=== PATIENT | female | born 1960 | race Caucasian/White ===

== ENCOUNTER 2022-04-25 19:46 | Emergency (ER) | payer MEDICARE, SELFPAY ==
[2022-04-25 19:47] VITALS: BP 129/72; PULSE 68; RESP 16; TEMP 36.6; O2SAT 95; BMI 25.7
--- NOTE | 2022-04-25 20:17 | CTR_ITS ---
PROCEDURE INFORMATION: Exam: CT Head Without Contrast Exam date and time: 04/25/2022 8:46 PM Age: 61 years old Clinical indication: Other: Seizure TECHNIQUE: Imaging protocol: Computed tomography of the head without contrast. Radiation optimization: All CT scans at this facility use at least one of these dose optimization techniques: automated exposure control; mA and/or kV adjustment per patient size (includes targeted exams where dose is matched to clinical indication); or iterative reconstruction. Other protocol: This patient has received 0 known CTs and 0 known cardiac nuclear medicine studies in the 12 months prior to the current study. COMPARISON: No relevant prior studies available. RADIATION DOSE METRICS: Total DLP (mGy-cm): 1209.25 FINDINGS: Brain: Normal. No hemorrhage. Unremarkable white matter. No mass effect. Cerebral ventricles: No ventriculomegaly. Paranasal sinuses: Visualized sinuses are unremarkable. No fluid levels. Mastoid air cells: Visualized mastoid air cells are well aerated. Orbital cavities: Calcifications in the right globe with high density material likely related to previous treatment of retinal detachment. Bones/joints: Unremarkable. No acute fracture. Soft tissues: Unremarkable. CT/CT head wo con* [id number] IMPRESSION: No acute intracranial abnormality.
[2022-04-25] MEDS: sodium chloride 0.9% 1,000 ML 999 ML IV (20:32)
[2022-04-25] MEDS: haloperidol inj 5 mg/mL INJ 1 mL 3 MG IVP (20:33)
[2022-04-25 20:46] LABS: Basophils % 0.3 %; Eosinophils # 0.1 10^3/uL (0.0-0.8); Eosinophils % 1.2 %; Hematocrit 44.7 % (37.0-47.0); Hemoglobin 15.1 g/dL (11.5-15.3); Lymphocytes # 1.8 10^3/uL (0.8-4.8); Lymphocytes % 26.5 %; Mean Corpuscular HGB Conc 33.8 g/dL (30.0-36.0); Mean Corpuscular Hemoglobin 31.7 pg (28.0-34.0); Mean Corpuscular Volume 93.7 fl (81-99); Mean Platelet Volume 10.9 fL (7.4-10.4); Monocytes # 0.5 10^3/uL (0.2-0.9); Monocytes % 6.9 %; Neutrophils # 4.39 10^3/uL (1.8-7.7); Neutrophils % 64.8 %; Nucleated Red Blood Cells % 0 %; Platelet Count 206 10^3/cmm (130-400); Red Blood Count 4.77 10^6/uL (4.1-5.3); Red Cell Distribution Width 11.9 % (12.1-15.1); White Blood Count 6.8 10^3/uL (4.0-10.0)
[2022-04-25 20:56] LABS: Alanine Aminotransferase 16 U/L (0-33); Albumin Level 3.9 g/dL (3.5-5.2); Alkaline Phosphatase 97 U/L (35-105); Anion Gap 16.9 (5-19); Aspartate Amino Transferase 22 U/L (0-32); Blood Urea Nitrogen 13 mg/dL (8-23); Calcium 9.4 mg/dL (8.5-10.5); Carbon Dioxide 24 mmol/L (22-29); Chloride 103 mmol/L (98-107); Globulin 3.1 g/dL (1.3-4.6); Glomerular Filtration Rate 125.4 mL/min (90-130); Glucose 173 mg/dL (65-115); Magnesium 1.8 mg/dL (1.7-2.3); Osmolality Calculated 294 mOsm/kg (285-295); Phosphorus 3.4 mg/dL (2.5-4.5); Potassium 3.9 mmol/L (3.5-5.1); Sodium 140 mmol/L (136-145); Total Bilirubin 0.5 mg/dL (0.15-1.2)
[2022-04-25 21:00] LABS: Alcohol Level < 10 mg/dL (0-10)
--- NOTE | 2022-04-25 21:24 | ED_ITS ---
HPI - Seizure General: Chief Complaint: Seizure Stated Complaint: SEIZURES Time Seen by Provider: 04/25/22 19:50 Source: patient History of Present Illness: HPI Narrative: 61-year-old female who was recently admitted to an outside facility for seizure- like episodes, discharged yesterday after multiple tests were ran, presenting with ongoing seizure-like episodes. She has had more than 1 today. On my interview, she begins to have 1 of these episodes. She stated that she felt it coming on. During the episode, her eyes closed, she had several tics or jerks and movement that were not rhythmic. She experienced rotating motions in both wrists, and semirhythmic movement of her feet. She was able to talk through this episode. She says these episodes are new for her. No cause was found on her prior hospitalization. She was sent home on Keppra. She does not believe it is helping with the frequency or intensity of these episodes. She does not bite her tongue or lose continence of bowel or bladder function. MD complaint: possible seizure Onset (ago): day(s) Description of Episode: other Trauma: No Seizure History: No Place: Home Possible Precipitating Event: none Associated symptoms: Reports confusion; Deny chest pain, cough, fever(s), short of breath or weakness Treatments prior to arrival: none Review of Systems Const: Denies: fever(s) ENMT: Denies: throat pain Card: Denies: chest pain Resp: Denies: dyspnea GI: Denies: abdominal pain Neuro: Reports: confusion Physical Exam Const: COMMON NORMALS: no acute distress and patient oriented x3 GENERAL APPEARANCE: cooperative; not ill appearing and not frail appearing HENMT: COMMON NORMALS: normocephalic, atraumatic and Normal external nose present HEAD & SCALP: normocephalic and atraumatic FACE & SINUS: normal facial exam and face symmetric NOSE: Normal external nose present Eye: COMMON NORMALS: Equal, round and reactive pupils present and EOMs intact bilaterally PUPIL: Yes Equal, round and reactive pupils present Neck/C-Spine: GENERAL: Yes trachea midline Chest: CHEST: Yes Symmetrical chest wall rise Resp: COMMON NORMALS: normal respiratory effort, No retractions, No use of accessory muscles and clear to auscultation bilaterally AUSCULTATION: clear to auscultation bilaterally Cardio: COMMON NORMALS: regular rate and regular rhythm RATE: regular rate RHYTHM: regular rhythm GI: COMMON NORMALS: Normal to inspection, nondistended, normoactive bowel sounds present Extremity: COMMON NORMALS: no pedal edema Neuro: JIMMIE COMA SCALE: document GCS findings Jimmie coma scale eye opening: Spontaneous [place] coma scale verbal response: Orientated Jimmie coma scale motor response: Obey commands Jimmie coma scale total score: 15 COMMON NORMALS: patient oriented x3 CRANIAL NERVES: Yes CN normal except as noted SPEECH: speech normal SENSORY EXAM: Yes extremities (intact) MOTOR EXAM: 5/5 motor strength present throughout, Pronator motor function not present and Normal motor muscle tone present throughout Psych: COMMON NORMALS: cooperative, speech normal and activity/motor behavior normal (Strange motor behaviors) SPEECH: Yes normal speech Skin: COMMON NORMALS: no rashes or lesions noted GENERAL SKIN EXAM: no rashes or lesions noted Course Vital Signs: Vital signs: Vital Signs Temperature 97.9 F 04/25/22 19:47 Pulse Rate 68 04/25/22 19:47 Respiratory Rate 16 04/25/22 19:47 Blood Pressure 129/72 04/25/22 19:47 Pulse Oximetry 95 04/25/22 19:47 Oxygen Delivery Me thod 04/25/22 19:47 MDM - Seizure MDM Narrative Medical decision making narrative: I have witnessed 1 of these episodes on my interview in the room. These are in no way generalized seizures. There was no arrhythmia on the monitor. She was able to talk through the episode. Her laboratory is not remarkable. Her head CT is negative. Her EKG is normal. We are attempting to obtain records from the outside facility she was seen at, as the patient states she had an EEG there, etc. We have not yet been able to obtain records from the outside facility. The patient was given IV Haldol after her first episode of seizure she has not had any more episodes. She has been resting comfortably. These are likely pseudoseizures given her presentation. She is encouraged to follow-up with neurology as an outpatient. Lab Data 04/25/22 20:33 04/25/22 20:33 Labs: Radiology Impressions Head CT 04/25/22 20:17 IMPRESSION: No acute intracranial abnormality. Laboratory Results WBC 6.8 10^3/uL (4.0-10.0) 04/25/22 20:33 RBC 4.77 10^6/uL (4.1-5.3) 04/25/22 20: Hgb 15.1 g/dL (11.5-15.3) 04/25/22 20: Hct 44.7 % (37.0-47.0) 04/25/22 20: MCV 93.7 fl (81-99) 04/25/22 20: MCH 31.7 pg (28.0-34.0) 04/25/22: MCHC 33.8 g/dL (30.0-36.0) 04/25/22 20: RDW 11.9 % (12.1-15.1) L 04/25/22 20: Plt Count 206 10^3/cmm (130-400) 04/25/22 20: MPV 10.9 fL (7.4-10.4) H 04/25/22 20: Neut % (Auto) 64.8 % 04/25/22: Lymph % (Auto) 26.5 % 04/25/22: [place] % (Auto) 6.9 % 04/25/22: Eos % (Auto) 1.2 % 04/25/22: Baso % (Auto) 0.3 % 04/25/22: Neut # (Auto) 4.39 10^3/uL (1.8-7.7) 04/25/22: Lymph # (Auto) 1.8 10^3/uL (0.8-4.8) 04/25/22: [place] # (Auto) 0.5 10^3/uL (0.2-0.9) 04/25/22 20: Eos # (Auto) 0.1 10^3/uL (0.0-0.8) 04/25/22: Baso # (Auto) 0.0 10^3/uL (0.0-0.1) 04/25/22: Nucleated RBC % (auto) 0 % 04/25/22: Nucleated RBCs # 0.0 /100WBC 04/25/22 20: Sodium 140 mmol/L (136-145) 04/25/22 20: Potassium 3.9 mmol/L (3.5-5.1) 04/25/22 20:33 Chloride 103 mmol/L (98-107) 04/25/22 20:33 Carbon Dioxide 24 mmol/L (22-29) 04/25/22 20:33 Anion Gap 16.9 (5-19) 04/25/22 20:33 BUN 13 mg/dL (8-23) 04/25/22 20:33 Creatinine 0.5 mg/dL (0.5-0.9) 04/25/22 20:33 GFR Calculation 125.4 mL/min (90-130) 04/25/22 20:33 Glucose 173 mg/dL (65-115) H 04/25/22 20:33 Calculated Osmolality 294 mOsm/kg (285-295) 04/25/22 20:33 Calcium 9.4 mg/dL (8.5-10.5) 04/25/22 20:33 Phosphorus 3.4 mg/dL (2.5-4.5) 04/25/22 20:33 Magnesium 1.8 mg/dL (1.7-2.3) 04/25/22 20:33 Total Bilirubin 0.5 mg/dL (0.15-1.2) 04/25/22 20:33 AST 22 U/L (0-32) 04/25/22 20:33 ALT 16 U/L (0-33) 04/25/22 20:33 Alkaline Phosphatase 97 U/L (35-105) 04/25/22 20:33 Total Protein 7.0 g/dL (6.6-8.7) 04/25/22 20:33 Albumin 3.9 g/dL (3.5-5.2) 04/25/22 20:33 Globulin 3.1 g/dL (1.3-4.6) 04/25/22 20:33 Ethyl Alcohol < 10 mg/dL (0-10) 04/25/22 20:33 Discharge Plan Discharge Patient Disposition: Home Clinical Impression: Pseudoseizure Condition: Stable Discharge Orders: Discharge ED (Routine); Ordered 04/25/22 Ordered By: Vikram Meade Patient Instructions: Recurrent Seizures in Adults (ED) Activity Restrictions/Additional Instructions: Continue your medications as prescribed by neurology. Follow-up with him as directed. Do not drive a car or operate machinery until cleared by neurology. You should attempt to remain as stress-free as possible for the next few days, and get plenty of sleep. Return for fever greater than 100, worsening mental status, weakness, language problems, worsening episodes of seizure, other concerning symptoms Coding Level of Care Code ED Systems Integration Manager for Monique Bustillos Exam Comprehensive
--- NOTE | 2022-04-28 11:18 | DCPLANNER ---
Addendum entered by Leonie Jo 06/18/22 09:01: appointment cancelled Addendum entered by Leonie Jo 05/08/22 16:28: Patient has a follow up appointment scheduled for Friday, June 17, 2022 at 12:[address] Vieira at neurology. Clinic will call patient with appointment information. Original Note: marketing effectiveness manager had message to schedule a follow up appointment for patient with neurology. marketing effectiveness manager sent patients information to the front office staff at neurology. Patients information will be printed and reviewed. Clinic will call patient with appointment information.
--- NOTE | 2022-04-28 11:21 | DCPLANNER ---
field nurse case manager had message to speak with patient about getting established with a primary care physician. field nurse case manager spoke with patient, she stated that she wanted to wait and speak with a friend before getting established with a physician. Patient stated that if she wanted help in getting established with someone, she will call manager case management to help.
== END 2022-04-26 02:02 | disposition home or self-care (01) ==
PROVIDERS: Emergency Provider Emergency Medicine
DX: G40.89 Other seizures (principal)
CPT/HCPCS: 36415; 70450; 80053; 80307; 83735; 84100; 85025; 96361; 96374; 99285; J1630; J7030

== ENCOUNTER → 2022-05-15 10:53 | Outpatient (BNVA) | payer MEDICARE, SELFPAY | PROVIDERS: PCP Nurse Practitioner Family; Visit Provider Nurse Practitioner Family | DX: E11.9 Type 2 diabetes mellitus without complications (principal); E78.5 Hyperlipidemia, unspecified | CPT/HCPCS: 80053; 80061; 83036 ==

== ENCOUNTER 2022-08-20 22:43 | Emergency (ER) | payer MEDICARE, MEDICAID, SELFPAY ==
[2022-08-20 22:44] VITALS: BP 148/84; PULSE 81; RESP 18; TEMP 36.7; O2SAT 95; BMI 29.7
[2022-08-20 22:50] VITALS: BP 112/55; O2SAT 94
--- NOTE | 2022-08-20 22:51 | XRR_ITS ---
PROCEDURE INFORMATION: Exam: XR Chest Exam date and time: 08/20/2022 11:03 PM Age: 61 years old Clinical indication: Other: Syncopal episode TECHNIQUE: Imaging protocol: Radiologic exam of the chest. Views: 1 view. COMPARISON: No relevant prior studies available. FINDINGS: Lungs: Unremarkable. No consolidation. Pleural spaces: Unremarkable. No pleural effusion. No pneumothorax. Heart/Mediastinum: Unremarkable. No cardiomegaly. Bones/joints: Unremarkable. XR/XR chest 1V portable [id number] IMPRESSION: No acute findings.
[2022-08-20 22:56] LABS: Basophils # 0.1 10^3/uL (0.0-0.1); Basophils % 0.7 %; Eosinophils # 0.1 10^3/uL (0.0-0.8); Eosinophils % 1.5 %; Hematocrit 42.1 % (37.0-47.0); Hemoglobin 14.3 g/dL (11.5-15.3); Lymphocytes # 2.3 10^3/uL (0.8-4.8); Lymphocytes % 31.8 %; Mean Corpuscular Hemoglobin 32.6 pg (28.0-34.0); Mean Corpuscular Volume 96.1 fl (81-99); Mean Platelet Volume 9.8 fL (7.4-10.4); Monocytes # 0.4 10^3/uL (0.2-0.9); Neutrophils # 4.27 10^3/uL (1.8-7.7); Neutrophils % 59.3 %; Nucleated Red Blood Cells % 0 %; Platelet Count 216 10^3/cmm (130-400); Red Blood Count 4.38 10^6/uL (4.1-5.3); Red Cell Distribution Width 13.4 % (12.1-15.1); White Blood Count 7.2 10^3/uL (4.0-10.0)
--- NOTE | 2022-08-20 22:59 | CTR_ITS ---
PROCEDURE INFORMATION: Exam: CT Maxillofacial Without Contrast Exam date and time: 08/20/2022 11:17 PM Age: 61 years old Clinical indication: Injury or trauma; Blunt trauma (contusions or hematomas); Orbit/periorbital; Prior surgery; Surgery date: 6+ months; Surgery type: Multiple eye surgeries; Patient HX: Syncopal episode with fall at home. Patient struck head on floor. Bruising and swelling to left orbit. Breast cancer. ; Additional info: Fall and hit head on ground. Lft periorbital pain and edema TECHNIQUE: Imaging protocol: Computed tomography of the face without contrast. Radiation optimization: All CT scans at this facility use at least one of these dose optimization techniques: automated exposure control; mA and/or kV adjustment per patient size (includes targeted exams where dose is matched to clinical indication); or iterative reconstruction. REPORTING DATA: Count of CT and Cardiac NM exams in prior 12 months: This patient has received [address] and 0 known cardiac nuclear medicine studies in the 12 months prior to the current study. COMPARISON: CT head wo con* [id number] 08/20/2022 11:14 PM RADIATION DOSE METRICS: Total DLP (mGy-cm): 594.34 FINDINGS: Orbital cavities: Unchanged right globe density with postop appearance. The left globe is irregular in shape and contains high density which may be due to globe rupture or physis bulbi. This requires correlation. No retrobulbar hematoma. Mild left-sided proptosis. Bones/joints: No fracture noted. Paranasal sinuses: No significant sinus disease is apparent. Soft tissues: Moderate left orbital and facial soft tissue swelling. CT/CT facial bones wo con* [id number] IMPRESSION: 1. Left orbital injuries as described with concern for left globe rupture versus developing physis bulbi. This is new from 04/25/2022. Therefore, globe injury must be considered most likely. Follow-up with ophthalmology. 2. No facial fracture noted.
--- NOTE | 2022-08-20 22:59 | XRR_ITS ---
PROCEDURE INFORMATION: Exam: XR Lumbosacral Spine Exam date and time: 08/20/2022 11:06 PM Age: 61 years old Clinical indication: Low back pain; Additional info: Low back pain after fall TECHNIQUE: Imaging protocol: Radiologic exam of the lumbosacral spine. Views: 2 or 3 views. COMPARISON: No relevant prior studies available. FINDINGS: Bones/joints: Multilevel moderate to severe disc space narrowing and productive degenerative endplate changes throughout the spine most significant at L2-L3. Soft tissues: Unremarkable. Vasculature: Scattered vascular calcifications. XR/XR lumbar spine 2-3V* [id number] IMPRESSION: 1. Multilevel moderate to severe disc space narrowing and productive degenerative endplate changes throughout the spine most significant at L2-L3. 2. Scattered vascular calcifications.
--- NOTE | 2022-08-20 22:59 | CTR_ITS ---
PROCEDURE INFORMATION: Exam: CT Cervical Spine Without Contrast Exam date and time: 08/20/2022 11:20 PM Age: 61 years old Clinical indication: Injury or trauma; Blunt trauma; Prior surgery; Surgery date: 6+ months; Surgery type: Cervical fusion; Patient HX: Syncopal episode with fall at home. Patient struck head on floor. Bruising and swelling to left orbit. Breast cancer. ; Additional info: Unprotected fall with +loc, neck pain TECHNIQUE: Imaging protocol: Computed tomography of the cervical spine without contrast. Radiation optimization: All CT scans at this facility use at least one of these dose optimization techniques: automated exposure control; mA and/or kV adjustment per patient size (includes targeted exams where dose is matched to clinical indication); or iterative reconstruction. REPORTING DATA: Count of CT and Cardiac NM exams in prior 12 months: This patient has received [address] and 0 known cardiac nuclear medicine studies in the 12 months prior to the current study. COMPARISON: CT facial bones wo con* [id number] 08/20/2022 11:17 PM RADIATION DOSE METRICS: Total DLP (mGy-cm): 144.17 FINDINGS: Bones/joints: No acute fracture. [id number] mid to lower cervical degenerative change. A C5-C6 fusion is intact. No jumped, locked or perched facets. No severe spinal canal stenosis. No significant neural foraminal narrowing. Lungs: Lung apices are normal. Vasculature: Advanced diffuse vascular calcification noted. Soft tissues: Unremarkable. CT/CT cervical spin wo con* [id number] IMPRESSION: No acute findings.
--- NOTE | 2022-08-20 22:59 | CTR_ITS ---
PROCEDURE INFORMATION: Exam: CT Head Without Contrast Exam date and time: 08/20/2022 11:14 PM Age: 61 years old Clinical indication: Injury or trauma; Blunt trauma (contusions or hematomas); Prior surgery; Surgery date: 6+ months; Surgery type: Multiple eye surgeries. Patient HX: Syncopal episode with fall at home. Patient struck head on floor. Bruising and swelling to left orbit. Breast cancer. ; Additional info: Fall and hit head with positive loss of consciousness TECHNIQUE: Imaging protocol: Computed tomography of the head without contrast. Radiation optimization: All CT scans at this facility use at least one of these dose optimization techniques: automated exposure control; mA and/or kV adjustment per patient size (includes targeted exams where dose is matched to clinical indication); or iterative reconstruction. REPORTING DATA: Count of CT and Cardiac NM exams in prior 12 months: This patient has received [address] and 0 known cardiac nuclear medicine studies in the 12 months prior to the current study. COMPARISON: CT head wo con* [id number] 04/25/2022 8:46 PM RADIATION DOSE METRICS: Total DLP (mGy-cm): 1106.38 FINDINGS: Brain: No focal hemorrhage or midline shift is identified. The ventricles and parenchyma show mild atrophy and chronic bicerebral white matter ischemic change. Cerebral ventricles: No ventriculomegaly or evidence of hydrocephalus. Paranasal sinuses: No evidence of acute sinusitis. Mastoid air cells: Visualized mastoid air cells are well aerated. Bones/joints: No displaced skull fracture is noted. Soft tissues: Unremarkable. Vasculature: Diffuse vascular calcifications are present. CT/CT head wo con* [id number] IMPRESSION: 1. No acute intracranial abnormality. 2. Mild age-related changes. 3. Face CT pending; orbit and globe findings will be detailed on that examination.
--- NOTE | 2022-08-20 22:59 | ECG_ITS ---
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 Measurements Intervals [place] Rate: 80 P: -82 WI: 119 QRS: 42 QRSD: 86 T: 49 QT: 355 QTc: 411 Interpretive Statements SINUS RHYTHM ABNORMAL RHYTHM ECG No previous ECG available for comparison Electronically Signed On 08-21-2022 20:44:55 CDT by Deirdre Ledezma M.D. [email or web address]
--- NOTE | 2022-08-20 23:02 | ED_ITS ---
Documented by User: GISELE Miller 08/21/22 01:28 HPI - Fall General: Chief Complaint: Fall Stated Complaint: FALL Time Seen by Provider: 08/20/22 22:45 History of Present Illness: Patient is a 61-year-old female who comes to the ED via EMS after fall. Patient has a past medical history of type 2 diabetes, fibromyalgia, breast cancer and IBS. Fall occurred just prior to arrival. Patient says she was having a hard time sleeping over the past couple days so tonight she took 1 tablet of 2 mg lorazepam and did not feel like it was working so she took another tablet of her 2 mg lorazepam and also drank a glass of vodka. Patient says she got up to go to the bathroom and woke up on the floor. She has no idea how she fell or what caused her fall. She was able to scoot her way out to her front door to call out for help. She states that when she woke up on the floor she was confused and disoriented. She thinks she was only out for several minutes but is unsure of the exact amount of time that passed. After fall her main complaints are headache, left maxillary and left periorbital pain and swelling, neck pain and low back pain. Patient also describes her left eye hurting when she moves it. She rates her pain currently a 6 out of 10. Denies any other symptoms preceding her syncopal episode and fall. Denies any chest pain, shortness of breath, palpitations, fevers, vomiting, bladder or bowel symptoms. Associated symptoms-after fall: Reports headache(s) and neck pain; Denies abdominal pain, chest pain or hematuria Review of Systems Const: Denies: fever(s), chills or fatigue Eyes: Reports: eye discomfort (Left eye pain with occular movements) and other (Left periorbital ecchymosis and swelling); Denies: change in vision ENMT: Reports: sinus pain (Left maxillary facial pain); Denies: throat pain, odynophagia, nasal discharge or nasal congestion Card: Reports: syncope; Denies: chest pain, palpitations, edema, swelling of feet/ankles, dyspnea on exertion or orthopnea Resp: Denies: dyspnea, productive cough or non-productive cough GI: Denies: abdominal pain, nausea, vomiting, diarrhea, constipation or hematochezia : Denies: flank pain, dysuria or hematuria Musc: Reports: neck pain and back pain; Denies: extremity swelling Skin/Breast: Denies: rash or new lesions Neuro: Reports: headache(s); Denies: numbness in extremities or weakness in extremities PFSH ED PFSH: Medical History Diabetes type 2, uncontrolled History of fibromyalgia Hx of breast cancer Hx of irritable bowel syndrome Surgical History History of ankle surgery Plates and screws in R. ankle History of tonsillectomy and adenoidectomy Hx of arthroscopic knee surgery R. Hx of cholecystectomy Hx of eye surgery Hx of mastectomy bilateral Family History Family/Other CAD (coronary artery disease) biological father's side Cancer biological mother's side Other Unobtainable family history due to adoption Social History Smoking and tobacco status: former smoker Quit status (tobacco): has quit using tobacco Year quit tobacco: 2021 Alcohol intake: never Substance/Drug Use: never Adopted: Yes Lives independently: Yes Household members: none Housing: Apartment Physical Exam Const: COMMON NORMALS: patient oriented x3 HENMT: COMMON NORMALS: normocephalic HEAD & SCALP: normocephalic MOUTH: Normal oral and palatal mucosa present THROAT: posterior oropharynx normal a nd uvula midline Eye: COMMON NORMALS: Equal, round and reactive pupils present (Normal on right eye) and EOMs intact bilaterally (Patient endorses pain in left eye with ocular movements) CONJUNCTIVA: Yes conjunctival abnormal positive left subconjunctival hemorrhage PUPIL: Yes Equal, round and reactive pupils present (Normal on right eye) OTHER: Patient also has active bleeding from left eye and globe appears ruptured. Neck/C-Spine: COMMON NORMALS: supple GENERAL: Yes normal visual inspection Resp: COMMON NORMALS: normal respiratory effort, No retractions, No use of accessory muscles and clear to auscultation bilaterally AUSCULTATION: clear to auscultation bilaterally Cardio: COMMON NORMALS: regular rate, regular rhythm, S1 normal heart sound present, S2 normal heart sound present, No gallops present (Cardio), No clicks present (Cardio), No murmurs present (Cardio) and Peripheral pulses 2+ throughout RATE: regular rate RHYTHM: regular rhythm HEART SOUNDS: S1 normal heart sound present and S2 normal heart sound present PERIPHERAL PULSES: Peripheral pulses 2+ throughout GI: COMMON NORMALS: Normal to inspection, nondistended, normoactive bowel lefty nds present, Soft to palpation, non-tender and no masses PALPATION: Yes Soft to palpation : COMMON NORMALS: Yes no CVA tenderness BLADDER/KIDNEY EXAM: Yes no CVA tenderness Back/Pelvis: COMMON NORMALS: no CVA tenderness Extremity: COMMON NORMALS: normal to inspection Neuro: COMMON NORMALS: patient oriented x3 GAIT: Yes Normal gait present Skin: GENERAL SKIN EXAM: dry skin Course Vital Signs: Vital signs: Vital Signs Temperature 98.0 F 08/20/22 22:44 Pulse Rate 82 08/21/22 01:19 Respiratory Rate 18 08/21/22 01:19 Blood Pressure 133/84 08/21/22 01:19 Pulse Oximetry 92 08/21/22 01:19 Oxygen Delivery Me thod Room Air 08/21/22 00:20 MDM - Fall Lab Data I reviewed the patient's lab results. 08/20/22 22:30 08/20/22 23:35 Radiology Impressions Chest X-Ray 08/20/22 22:51 IMPRESSION: No acute findings. Cervical Spine CT 08/20/22 22:59 IMPRESSION: No acute findings. Face CT 08/20/22 22:59 IMPRESSION: 1. Left orbital injuries as described with concern for left globe rupture versus developing physis bulbi. This is new from 04/25/2022. Therefore, globe injury must be considered most likely. Follow-up with ophthalmology. 2. No facial fracture noted. Head CT 08/20/22 22:59 IMPRESSION: 1. No acute intracranial abnormality. 2. Mild age-related changes. 3. Face CT pending; orbit and globe findings will be detailed on that examination. Lumbar Spine X-Ray 08/20/22 22:59 IMPRESSION: 1. Multilevel moderate to severe disc space narrowing and productive degenerative endplate changes throughout the spine most significant at L2-L3. 2. Scattered vascular calcifications. Laboratory Results WBC 7.2 10^3/uL (4.0-10.0) 08/20/22 22:30 RBC 4.38 10^6/uL (4.1-5.3) 08/20/22 22:30 Hgb 14.3 g/dL (11.5-15.3) 08/20/22: Hct 42.1 % (37.0-47.0) 08/20/22 22: MCV 96.1 fl (81-99) 08/20/22 22: MCH 32.6 pg (28.0-34.0) 08/20/22: MCHC 34.0 g/dL (30.0-36.0) 08/20/22: RDW 13.4 % (12.1-15.1) 08/20/22: Plt Count 216 10^3/cmm (130-400) 08/20/22: MPV 9.8 fL (7.4-10.4) 08/20/22: Neut % (Auto) 59.3 % 08/20/22: Lymph % (Auto) 31.8 % 08/20/22: Whiteside % (Auto) 6.0 % 08/20/22: Eos % (Auto) 1.5 % 08/20/22: Baso % (Auto) 0.7 % 08/20/22: Neut # (Auto) 4.27 10^3/uL (1.8-7.7) 08/20/22: Lymph # (Auto) 2.3 10^3/uL (0.8-4.8) 08/20/22: Whiteside # (Auto) 0.4 10^3/uL (0.2-0.9) 08/20/22: Eos # (Auto) 0.1 10^3/uL (0.0-0.8) 08/20/22: Baso # (Auto) 0.1 10^3/uL (0.0-0.1) 08/20/22: Nucleated RBC % (auto) 0 % 08/20/22: Nucleated RBCs # 0.0 /100WBC 08/20/22: Sodium 140 mmol/L (136-145) 08/20/22: Potassium 3.8 mmol/L (3.5-5.1) 08/20/22 23:35 Chloride 104 mmol/L (98-107) 08/20/22 23:35 Carbon Dioxide 25 mmol/L (22-29) 08/20/22 23:35 Anion Gap 14.8 (5-19) 08/20/22 23:35 BUN 21 mg/dL (8-23) 08/20/22 23:35 Creatinine 0.6 mg/dL (0.5-0.9) 08/20/22 23:35 GFR Calculation 101.6 mL/min (90-130) 08/20/22 23:35 Glucose 97 mg/dL (65-115) 08/20/22 23:35 Calculated Osmolality 293 mOsm/kg (285-295) 08/20/22 23:35 Calcium 8.8 mg/dL (8.5-10.5) 08/20/22 23:35 Total Bilirubin 0.3 mg/dL (0.15-1.2) 08/20/22 23:35 AST 22 U/L (0-32) 08/20/22 23:35 ALT 14 U/L (0-33) 08/20/22 23:35 Alkaline Phosphatase 98 U/L (35-105) 08/20/22 23:35 Troponin T Baseline 7 ng/L (0-10) 08/20/22 22:30 Total Protein 6.7 g/dL (6.6-8.7) 08/20/22 23:35 Albumin 4.0 g/dL (3.5-5.2) 08/20/22 23:35 Globulin 2.7 g/dL (1.3-4.6) 08/20/22 23:35 Urine Color Straw (Yellow) 08/20/22 23:54 Urine Appearance Clear (CLEAR) 08/20/22 23:54 Urine pH 5 (5-7) 08/20/22 23:54 Ur Specific Prentiss 1.015 (1.005-1.030) 08/20/22 23:54 Urine Protein Neg (Negative) 08/20/22 23:54 Urine Glucose (UA) Norm (Normal) 08/20/22 23:54 Urine Ketones Negative (Negative) 08/20/22 23:54 Urine Blood Neg (Negative) 08/20/22 23:54 Urine Nitrate Negative (Negative) 08/20/22 23:54 Urine Bilirubin Neg (Negative) 08/20/22 23:54 Urine Urobilinogen Norm mg/dL (Negative) 08/20/22 23:54 Ur Leukocyte Esterase Negative (Negative) 08/20/22 23:54 Urine Opiates Screen Positive ng/mL (Negative) H 08/20/22 23:54 Ur Barbiturates Screen Negative ng/mL (Negative) 08/20/22 23:54 Ur Phencyclidine Scrn Negative ng/mL (Negative) 08/20/22 23:54 Ur Amphetamines Screen Negative ng/mL (Negative) 08/20/22 23:54 U Benzodiazepines Scrn Positive ng/mL (Negative) H 08/20/22 23:54 Urine Cocaine Screen Negative ng/mL (Negative) 08/20/22 23:54 U Marijuana (THC) Screen Negative ng/mL (Negative) 08/20/22 23:54 Ethyl Alcohol 175 mg/dL (0-10) H 08/20/22 23:35 Discharge Plan Discharge Patient Disposition: Xfer Short-Term Hosp Clinical Impression: Fall, Rupture of globe of left eye following blunt trauma Condition: Stable Referrals: Nieves Bob FNP [Primary Care Provider] - Coding Level of Care Code ED Unemployment Inspector for Chg Fwd Documented by User: Nya Palencia MD 08/21/22 00:51 HPI - Fall General: Chief Complaint: Fall Stated Complaint: FALL Time Seen by Provider: 08/20/22 22:45 PFSH ED PFSH: Medical History Diabetes type 2, uncontrolled History of fibromyalgia Hx of breast cancer Hx of irritable bowel syndrome Surgical History History of ankle surgery Plates and screws in R. ankle History of tonsillectomy and adenoidectomy Hx of arthroscopic knee surgery R. Hx of cholecystectomy Hx of eye surgery Hx of mastectomy bilateral Family History Family/Other CAD (coronary artery disease) biological father's side Cancer biological mother's side Other Unobtainable family history due to adoption Social History Smoking and tobacco status: former smoker Quit status (tobacco): has quit using tobacco Year quit tobacco: 2021 Alcohol intake: never Substance/Drug Use: never Adopted: Yes Lives independently: Yes Household members: none Housing: Apartment Course Vital Signs: Vital signs: Vital Signs Temperature 98.0 F 08/20/22 22:44 Pulse Rate 82 08/21/22 01:19 Respiratory Rate 18 08/21/22 01:19 Blood Pressure 133/84 08/21/22 01:19 Pulse Oximetry 92 08/21/22 01:19 Oxygen Delivery Me thod Room Air 08/21/22 00:20 MDM - Fall Medical Decision Making Patient presents with a globe rupture from a fall with her left eye I did go and examine her she has very irregular pupil with blood in the globe she is only able to see bright lights and shadows out of that I spoke to our discharge planner on-call who recommended a trauma center did not have the appropriate equipment here to be able to fix this. I did speak to [facility] and will transfer there at this time. Lab Data 08/20/22 22:30 08/20/22 23:35 Radiology Impressions Chest X-Ray 08/20/22 22:51 IMPRESSION: No acute findings. Cervical Spine CT 08/20/22 22:59 IMPRESSION: No acute findings. Face CT 08/20/22 22:59 IMPRESSION: 1. Left orbital injuries as described with concern for left globe rupture versus developing physis bulbi. This is new from 04/25/2022. Therefore, globe injury must be considered most likely. Follow-up with ophthalmology. 2. No facial fracture noted. Head CT 08/20/22 22:59 IMPRESSION: 1. No acute intracranial abnormality. 2. Mild age-related changes. 3. Face CT pending; orbit and globe findings will be detailed on that examination. Lumbar Spine X-Ray 08/20/22 22:59 IMPRESSION: 1. Multilevel moderate to severe disc space narrowing and productive degenerative endplate changes throughout the spine most significant at L2-L3. 2. Scattered vascular calcifications. Laboratory Results WBC 7.2 10^3/uL (4.0-10.0) 08/20/22: RBC 4.38 10^6/uL (4.1-5.3) 08/20/22 22: Hgb 14.3 g/dL (11.5-15.3) 08/20/22 22: Hct 42.1 % (37.0-47.0) 08/20/22: MCV 96.1 fl (81-99) 08/20/22 22: MCH 32.6 pg (28.0-34.0) 08/20/22: MCHC 34.0 g/dL (30.0-36.0) 08/20/22: RDW 13.4 % (12.1-15.1) 08/20/22: Plt Count 216 10^3/cmm (130-400) 08/20/22: MPV 9.8 fL (7.4-10.4) 08/20/22: Neut % (Auto) 59.3 % 08/20/22: Lymph % (Auto) 31.8 % 08/20/22 22: Whiteside % (Auto) 6.0 % 08/20/22: Eos % (Auto) 1.5 % 08/20/22: Baso % (Auto) 0.7 % 08/20/22: Neut # (Auto) 4.27 10^3/uL (1.8-7.7) 08/20/22: Lymph # (Auto) 2.3 10^3/uL (0.8-4.8) 08/20/22: Whiteside # (Auto) 0.4 10^3/uL (0.2-0.9) 08/20/22: Eos # (Auto) 0.1 10^3/uL (0.0-0.8) 08/20/22: Baso # (Auto) 0.1 10^3/uL (0.0-0.1) 08/20/22: Nucleated RBC % (auto) 0 % 08/20/22: Nucleated RBCs # 0.0 /100WBC 05/24/23 22:30 Sodium 140 mmol/L (136-145) 08/20/22 23:35 Potassium 3.8 mmol/L (3.5-5.1) 08/20/22 23:35 Chloride 104 mmol/L (98-107) 08/20/22 23:35 Carbon Dioxide 25 mmol/L (22-29) 08/20/22 23:35 Anion Gap 14.8 (5-19) 08/20/22 23:35 BUN 21 mg/dL (8-23) 08/20/22 23:35 Creatinine 0.6 mg/dL (0.5-0.9) 08/20/22 23:35 GFR Calculation 101.6 mL/min (90-130) 08/20/22 23:35 Glucose 97 mg/dL (65-115) 08/20/22 23:35 Calculated Osmolality 293 mOsm/kg (285-295) 08/20/22 23:35 Calcium 8.8 mg/dL (8.5-10.5) 08/20/22 23:35 Total Bilirubin 0.3 mg/dL (0.15-1.2) 08/20/22 23:35 AST 22 U/L (0-32) 08/20/22 23:35 ALT 14 U/L (0-33) 08/20/22 23:35 Alkaline Phosphatase 98 U/L (35-105) 08/20/22 23:35 Troponin T Baseline 7 ng/L (0-10) 08/20/22 22:30 Total Protein 6.7 g/dL (6.6-8.7) 08/20/22 23:35 Albumin 4.0 g/dL (3.5-5.2) 08/20/22 23:35 Globulin 2.7 g/dL (1.3-4.6) 08/20/22 23:35 Urine Color Straw (Yellow) 08/20/22 23:54 Urine Appearance Clear (CLEAR) 08/20/22 23:54 Urine pH 5 (5-7) 08/20/22 23:54 Ur Specific Prentiss 1.015 (1.005-1.030) 08/20/22 23:54 Urine Protein Neg (Negative) 08/20/22 23:54 Urine Glucose (UA) Norm (Normal) 05/24/23 23:54 Urine Ketones Negative (Negative) 08/20/22 23:54 Urine Blood Neg (Negative) 08/20/22 23:54 Urine Nitrate Negative (Negative) 08/20/22 23:54 Urine Bilirubin Neg (Negative) 08/20/22 23:54 Urine Urobilinogen Norm mg/dL (Negative) 08/20/22 23:54 Ur Leukocyte Esterase Negative (Negative) 08/20/22 23:54 Urine Opiates Screen Positive ng/mL (Negative) H 08/20/22 23:54 Ur Barbiturates Screen Negative ng/mL (Negative) 08/20/22 23:54 Ur Phencyclidine Scrn Negative ng/mL (Negative) 08/20/22 23:54 Ur Amphetamines Screen Negative ng/mL (Negative) 08/20/22 23:54 U Benzodiazepines Scrn Positive ng/mL (Negative) H 08/20/22 23:54 Urine Cocaine Screen Negative ng/mL (Negative) 08/20/22 23:54 U Marijuana (THC) Screen Negative ng/mL (Negative) 08/20/22 23:54 Ethyl Alcohol 175 mg/dL (0-10) H 08/20/22 23:35 Critical Care Time Critical Care Time: Critical Care Time: Yes Total Critical Care Time: 40 Attestation: The high probability of a clinically significant, sudden or life threatening det erioration of the patient's optho system(s) required my full and direct attention, intervention and personal management. The critical care time is as shown. This time is in addition to time spent performing any reported procedures but includes the following: [x] Data and vital sign review and interpretation [x] Patient assessment, examination and intervention [x] Documentation [x] Medication orders and management Discharge Plan Discharge Patient Disposition: Xfer Short-Term Hosp Clinical Impression: Fall, Rupture of globe of left eye following blunt trauma Condition: Stable Referrals: Nieves Bob FNP [Primary Care Provider] - Coding Level of Care Code ED Unemployment Inspector for Monique Bustillos
[2022-08-20 23:12] LABS: Troponin(5th) Baseline 7 ng/L (0-10)
[2022-08-20] MEDS: ondansetron 2 mg/ML SDV 2 mL 4 MG IVP (23:32)
[2022-08-20 23:34] VITALS: RESP 18; O2SAT 98
[2022-08-20] MEDS: morphine 4 mg/mL SDV 1 mL 2 MG IVP (23:34)
[2022-08-20 23:57] LABS: Add Urine Microscopic? NO; Charge for UA Resulting for Rev
[2022-08-20 23:59] LABS: Alanine Aminotransferase 14 U/L (0-33); Alcohol Level 175 mg/dL (0-10); Alkaline Phosphatase 98 U/L (35-105); Anion Gap 14.8 (5-19); Aspartate Amino Transferase 22 U/L (0-32); Blood Urea Nitrogen 21 mg/dL (8-23); Calcium 8.8 mg/dL (8.5-10.5); Carbon Dioxide 25 mmol/L (22-29); Chloride 104 mmol/L (98-107); Creatinine Clr Calc Pharmacy 111.0356; Globulin 2.7 g/dL (1.3-4.6); Glomerular Filtration Rate 101.6 mL/min (90-130); Glucose 97 mg/dL (65-115); Osmolality Calculated 293 mOsm/kg (285-295); Potassium 3.8 mmol/L (3.5-5.1); Sodium 140 mmol/L (136-145); Total Bilirubin 0.3 mg/dL (0.15-1.2); Total Protein 6.7 g/dL (6.6-8.7)
[2022-08-21] LABS: Bilirubin Urine Neg (Negative); Blood Urine Neg (Negative); Glucose Urine UA Norm (Normal); Ketones Urine Negative (Negative); Leukocyte Esterase Urine Negative (Negative); Nitrate Urine Negative (Negative); Protein Urine Neg (Negative); Specific Gravity, Urine 1.015 (1.005-1.030); Urine Appearance Clear (CLEAR); Urine Color Straw (Yellow); Urobilinogen Urine Norm (Negative); pH Urine 5 (5-7)
[2022-08-21 00:08] LABS: Amphetamines Screen Urine Negative (Negative); Barbiturates Screen Urine Negative (Negative); Benzodiazepines Screen Urine Positive (Negative); Cocaine Screen Urine Negative (Negative); Opiate Screen Urine Positive (Negative); PCP Screen Urine Negative (Negative); THC Screen Urine Negative (Negative)
[2022-08-21 00:20] VITALS: BP 153/79; PULSE 71; RESP 21; O2SAT 95
[2022-08-21 00:46] VITALS: RESP 16
[2022-08-21] MEDS: HYDROmorphone 1 mg/mL INJ 1 mL IVP (00:46)
--- NOTE | 2022-08-21 00:54 | ECG_ITS ---
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 Measurements Intervals Keeler Rate: 74 P: -80 MT: 95 QRS: 41 QRSD: 90 T: 58 QT: 385 QTc: 428 Interpretive Statements JUNCTIONAL RHYTHM ABNORMAL RHYTHM ECG Compared to ECG 08/20/2022 22:59:22 No significant changes Electronically Signed On 08-21-2022 21:28:14 CDT by Deirdre Ledezma M.D. [email or web address]
[2022-08-21 01:19] VITALS: BP 133/84; PULSE 82; RESP 18; O2SAT 92
== END 2022-08-21 01:20 | disposition short-term general hospital (02) ==
PROVIDERS: Physician Assistant; Emergency Provider Emergency Medicine; PCP Nurse Practitioner Family
DX: S05.32XA Ocular laceration without prolapse or loss of intraocular tissue, left eye, initial encounter (principal); E11.9 Type 2 diabetes mellitus without complications; Z85.3 Personal history of malignant neoplasm of breast; Z87.891 Personal history of nicotine dependence; W19.XXXA Unspecified fall, initial encounter
CPT/HCPCS: 70450; 70486; 71045; 72100; 72125; 80053; 80306; 80307; 81003; 84484; 85025; 93005; 96374; 96375; 99285; J1170; J2270; J2405